=== PATIENT | female | born 1960 | race American Indian/Alaskan Native ===

== ENCOUNTER 2017-02-13 14:24 | Outpatient (CLI) | payer MEDICARE ==
--- NOTE | 2017-02-13 15:12 | Mammography Report ---
BILATERAL DIGITAL SCREENING MAMMOGRAM with CAD: 02/13/17 14:24:00 CLINICAL: Routine screening. COMPARISON:01/25/16 FINDINGS: The breasts are heterogeneously dense, which may obscure small masses. No mass, architectural distortion or suspicious calcifications. IMPRESSION: No mammographic evidence of malignancy. BI-RADS CATEGORY: 1 - - Negative RECOMMENDATION: Routine mammographic screening in one year. COMMENT: Patient follow-up letters are generated by our [employer] application.
== END 2017-02-13 14:25 | disposition home or self-care (01) ==
LOC: SPVWC 14:24
PROVIDERS: ATTEND Surgery
DX: Z12.31 Encounter for screening mammogram for malignant neoplasm of breast (principal)
CPT/HCPCS: 77067; G0202

== ENCOUNTER 2017-09-07 07:49 | Day surgery (SDC) | payer MEDICARE ==
[2017-09-07] MEDS ORDERED: NACL 0.9% 500 ML 500 ML IV SCH (09:00)
[2017-09-07] MEDS ORDERED: ECOTRIN PO ONE (09:00)
[2017-09-07 09:18] LABS: Basophils % (Auto) 0.6 % (0.0-1.8); Eosinophils % (Auto) 2.3 % (0.0-4.3); Hematocrit 39.9 % (30.3-42.9); Hemoglobin 12.9 gm/dl (10.1-14.3); Mean Corpuscular HGB Conc 32 % (30-34); Mean Corpuscular Hemoglobin 27 pg (28-32); Mean Corpuscular Volume 83 fl (79-97); Platelet Count 226 K/mm3 (140-440); Red Blood Count 4.79 M/mm3 (3.65-5.03); Red Cell Distribution Width 13.8 % (13.2-15.2); White Blood Count 9.8 K/mm3 (4.5-11.0)
[2017-09-07 09:33] LABS: Anion Gap 15 mmol/L; BUN/Creatinine Ratio 10; Blood Urea Nitrogen 9 mg/dL (7-17); Calcium 9.3 mg/dL (8.4-10.2); Carbon Dioxide 29 mmol/L (22-30); Chloride 103.3 mmol/L (98-107); Glucose 120 mg/dL (65-100); Potassium 4.9 mmol/L (3.6-5.0); Sodium 142 mmol/L (137-145)
[2017-09-07 09:44] LABS: INR 1.08 (0.87-1.13)
[2017-09-07] MEDS ORDERED: VALIUM PO ONE (09:45)
--- NOTE | 2017-09-07 09:51 | Short Stay Summary ---
Short Stay Documentation Date of service: 09/07/17 - History H&P: obtained from office - Allergies and Medications Current Medications: Allergies omeprazole Allergy (Verified 09/07/17 08:45) Diarrhea sucralfate [From Carafate] Allergy (Verified 09/07/17 08:39) Unknown acetaminophen [From Maxidone] Adverse Reaction (Verified 09/07/17 08:36) Itching hydrocodone [From Maxidone] Adverse Reaction (Verified 09/07/17 08:36) Itching lansoprazole [From Prevacid] Adverse Reaction (Verified 09/07/17 08:36) Anaphylaxis Latex, Natural Rubber Adverse Reaction (Verified 09/07/17 08:36) Itching pregabalin [From Lyrica] Adverse Reaction (Verified 09/07/17 08:36) Itching ranitidine [From Zantac] Adverse Reaction (Verified 09/07/17 08:39) Unknown tomato Adverse Reaction (Verified 09/07/17 08:36) Itching Active Medications Sodium Chloride (Nacl 0.9% 500 Ml) 500 mls @ 50 mls/hr IV DIRECT JOAQUIN Stop: 09/07/17 18:59 Last Admin: 09/07/17 09:35 Dose: 50 mls/hr - Brief post op/procedure progress note Date of procedure: 09/07/17 Pre-op diagnosis: pad Post-op diagnosis: same Procedure: see report Anesthesia: local Estimated blood loss: none Pathology: none - Disposition Condition at discharge: Good Disposition: DC-01 TO HOME OR SELFCARE - Discharge Diagnoses (1) 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
[2017-09-07] MEDS ORDERED: VERSED IV ONE (10:01)
[2017-09-07] MEDS ORDERED: SUBLIMAZE ONE (10:01)
--- NOTE | 2017-09-07 11:25 | Short Stay Summary ---
Short Stay Documentation Date of service: 09/07/17 - History H&P: obtained from office - Allergies and Medications Current Medications: Allergies omeprazole Allergy (Verified 09/07/17 08:45) Diarrhea sucralfate [From Carafate] Allergy (Verified 09/07/17 08:39) Unknown acetaminophen [From Maxidone] Adverse Reaction (Verified 09/07/17 08:36) Itching hydrocodone [From Maxidone] Adverse Reaction (Verified 09/07/17 08:36) Itching lansoprazole [From Prevacid] Adverse Reaction (Verified 09/07/17 08:36) Anaphylaxis Latex, Natural Rubber Adverse Reaction (Verified 09/07/17 08:36) Itching pregabalin [From Lyrica] Adverse Reaction (Verified 09/07/17 08:36) Itching ranitidine [From Zantac] Adverse Reaction (Verified 09/07/17 08:39) Unknown tomato Adverse Reaction (Verified 09/07/17 08:36) Itching Home Medications Medication Instructions Recorded Confirmed Last Taken Type Azelas/Fluticasone/Sod Chlorid 1 spray INNOSTRIL BID 09/07/17 09/07/17 09/03/17 History [Ticalast Nasal [place] Kit] 1 spray Carvedilol [Carvedilol] 25 mg PO BID 09/07/17 09/07/17 09/07/17 07:00 History 25mg Cholecalciferol (Vitd3)/Vit K2 [D3 1 tab PO DAILY 09/07/17 09/07/17 09/05/17 History + K2 Dots 1,000 Units Tab] 1 tab Ezetimibe [Zetia] 10 mg PO HS 09/07/17 09/07/17 09/06/17 History 10mg Famotidine [Pepcid] 20 mg PO TID 09/07/17 09/07/17 09/06/17 History 20mg Ipratropium 0.06% [Atrovent] 2 spray NS Q8HR 09/07/17 09/07/17 09/03/17 History 2 sprays Magnesium Carb/Aluminum Hydrox 2 tab PO AC 09/07/17 09/07/17 09/06/17 History [Gaviscon Es Tablet Chew] 2 tab Methylnaltrexone [place] [Relistor] 150 mg PO BID 09/07/17 09/07/17 09/06/17 History 150mg [place]-3 Fatty Acids/Fish Oil [Eql 1 tab PO TID 09/07/17 09/07/17 09/06/17 History [place]-3 Fish Oil 1,000 mg] 1 tab Oxycodone HCl/Acetaminophen 1 tab PO Q6H PRN 09/07/17 09/07/17 09/06/17 History [Percocet 10/325 mg] 1 tab Active Medications Sodium Chloride (Nacl 0.9% 500 Ml) 500 mls @ 50 mls/hr IV DIRECT JOAQUIN Stop: 09/07/17 18:59 Last Admin: 09/07/17 09:35 Dose: 50 mls/hr - Brief post op/procedure progress note Date of procedure: 09/07/17 Pre-op diagnosis: abnl stress and chest pain Post-op diagnosis: other Procedure: normal coronaries and see report Anesthesia: local Estimated blood loss: none Pathology: none - Disposition Condition at discharge: Good Disposition: DC-01 TO HOME OR SELFCARE - Discharge Diagnoses (1) Hypertension Status: Chronic Qualifiers: Hypertension type: essential hypertension Qualified Code(s): I10 - Essential (primary) hypertension (2) Hyperlipemia, mixed Status: Chronic (3) Abnormal cardiovascular stress test Status: Resolved (4) Chest pain Status: Chronic Qualifiers: Chest pain type: unspecified Qualified Code(s): R07.9 - Chest pain, unspecified Short Stay Discharge Plan Follow up with: SANTNAA BECKETT MD [Primary Care Provider] - 7 Days
--- NOTE | 2017-09-07 12:13 | Cardiac Catherization Report ---
LEFT HEART CATHETERIZATION ORDERING PHYSICIAN: READING PHYSICIAN: Dr. Emeka Zamora. CLINICAL INFORMATION: This is a 57-year-old female with chronic pain syndrome, hypertension, abnormal stress test with large apical defect with atypical chest pains here for left heart catheterization. Left heart catheterization performed via the right radial artery, sterile technique, local anesthesia. Normal Javy's test. A 6-Divehi radial sheath was inserted. PROCEDURE FINDINGS: Left system engaged JL3.5 catheter. Left main is large and patent, trifurcates into a medium caliber LAD, proximal then is a medium caliber septal that comes off and then LAD is a [id number] caliber vessel, has moderate tortuosity. Ramus is a [id number] caliber vessel, moderate tortuosity patent. Circumflex and AV groove is a medium caliber vessel, patent, goes into a medium caliber OM1. Moderate to severe tortuosity is patent. RCA engaged with JR4 is a medium caliber vessel, patent with moderate tortuosity. PDA and PLV are small caliber vessel, patent with moderate tortuosity. LV gram done in the KRISTY and MACKEY view shows normal LV function, EF 55% to 60%. LVEDP of 20 mmHg, LV is 159/20. Aortic is 159/86. No gradient across the aortic valve on pullback. 5-Divehi catheters were taken over guidewire, 6-Divehi radial sheath was discontinued. Radial dressing applied. No hematoma. No bleeding. SUMMARY: Patent coronaries. Moderate to severe tortuosity of vessels, normal LV function. Continue risk factor modification. Discussed this in detail with the patient. JOB# [id number] SANJIV/MARIAH
[2017-09-07 15:05] VITALS: BP 139/67
== END 2017-09-07 14:00 | disposition home or self-care (01) ==
LOC: CATHLABREC 07:49
PROVIDERS: ATTEND Internal Medicine
DX: R07.89 Other chest pain (principal); G89.4 Chronic pain syndrome; I10 Essential (primary) hypertension; E78.2 Mixed hyperlipidemia; E11.51 Type 2 diabetes mellitus with diabetic peripheral angiopathy without gangrene; Z79.899 Other long term (current) drug therapy; Z98.890 Other specified postprocedural states; Z91.040 Latex allergy status; Z88.4 Allergy status to anesthetic agent; Z88.8 Allergy status to other drugs, medicaments and biological substances; Z91.018 Allergy to other foods; Z83.3 Family history of diabetes mellitus; Z79.84 Long term (current) use of oral hypoglycemic drugs
CPT/HCPCS: 36415; 80048; 85025; 85610; 85730; 93005; 93010; 93458; 99152; C1894; J2250; J3010; J7040; Q9967

== ENCOUNTER 2018-02-19 13:02 | Outpatient (CLI) | payer MEDICARE ==
--- NOTE | 2018-02-19 13:54 | Mammography Report ---
BILATERAL DIGITAL SCREENING MAMMOGRAM with CAD : 02/19/18 13:02:00 CLINICAL: Routine screening. COMPARISON:02/13/17, 01/25/16, 01/11/15 and 01/05/15 FINDINGS: The breasts are heterogeneously dense, which may obscure small masses.A left upper outer focal asymmetry is not significantly changed compared to prior exams. No mass, architectural distortion or suspicious calcifications. IMPRESSION: No mammographic evidence of malignancy. BI-RADS CATEGORY: 2 -- Benign RECOMMENDATION: Routine mammographic screening in one year. COMMENT: Patient follow-up letters are generated by our [employer] application.
== END 2018-02-19 13:03 | disposition home or self-care (01) ==
LOC: SPVWC 13:02
PROVIDERS: ATTEND Surgery
DX: Z12.31 Encounter for screening mammogram for malignant neoplasm of breast (principal)
CPT/HCPCS: 77067